=== PATIENT | female | born 1940 | race Caucasian/White ===

== ENCOUNTER 2019-11-16 10:37 | Outpatient (CLI) | payer MEDICARE, SELFPAY ==
--- NOTE | 2019-11-16 12:16 | MR_ITS ---
WS: [id number] MRI CERVICAL SPINE NONCONTRAST TECHNIQUE: Sagittal T1, T2 and STIR imaging. Axial T2, gradient, and fiesta imaging. CLINICAL INFORMATION: NECK PAIN/ RIGHT HAND NUMBNESS COMPARISON: None. FINDINGS: Straightening of the normal cervical lordosis. Cord signal is normal. Mild disc bulging in the mid th oracic spine worse at C3-C4, C4-C5, C5-C6, and C6-7. C2-C3: Small central disc protrusion with slight contact of the cervical cord. Spinal canal is patent . Foramen are patent. C3-C4: Right pericentral disc protrusion with slight contact the cervical cord. Mild central canal st enosis. Moderate right and mild left bony foraminal narrowing. Mild facet arthropathy. C4-C5: Disc osteophyte complex with indentation right ventral cervical cord. Moderate central canal s tenosis. Moderate to severe left and moderate right bony foraminal narrowing. C5-C6: Disc osteophyte complex with shallow central protrusion. Slight contact of the cervical cord. Moderate central canal stenosis. Severe left and moderate right bony foraminal narrowing. Mild facet arthropathy. C6-C7: Disc osteophyte complex with endplate ridging. Moderate to severe bilateral bony foraminal torin rowing worse on the left. Mild central canal stenosis. C7-T1: Slight anterolisthesis C7 on T1. Mild left and no significant right foraminal narrowing. Spina l canal is patent Left pericentral protrusion T1-2. Mild bilateral T1-T2 foraminal narrowing. 6 mm T2 hyperintense nodule in left thyroid gland. MR/MR cervical spin wo con* [id number] IMPRESSION: 1. Straightening of the normal cervical lordosis with moderate central canal s tenosis C3-C6 as described above. This is worse at C4-C5 and C5-C6. 2. Multilevel moderate to severe bony foraminal narrowing worse at left C4-C5, bilateral C5-6 worse in the left, and bilateral C6-7. 3. Cord signal is normal.
== END 2019-11-16 10:38 | disposition home or self-care (01) ==
LOC: RADSHAW 10:42
PROVIDERS: Family Provider Family Medicine; PCP Family Medicine; Visit Provider Physician Assistant
DX: R20.0 Anesthesia of skin (principal); M48.02 Spinal stenosis, cervical region
CPT/HCPCS: 72141

== ENCOUNTER 2022-11-02 09:16 | Observation (INO) | payer MEDICARE, SELFPAY ==
[2022-11-02] VITALS (15 sets, daily range): BP systolic 107–154; BP diastolic 60–97; PULSE 77–143; RESP 16–25; TEMP 36.6; O2SAT 91–96; BMI 27.7
--- NOTE | 2022-11-02 09:20 | XRR_ITS ---
PROCEDURE INFORMATION: Exam: XR Chest Exam date and time: 11/02/2022 9:50 AM Age: 82 years old Clinical indication: Pain; Angina pectoris; Additional info: Chest pain TECHNIQUE: Imaging protocol: Radiologic exam of the chest. Views: 1 view. 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 No acute pulmonary infiltrates are seen. Pleural spaces: Unremarkable. No pleural effusion. No pneumothorax. Heart/Mediastinum: Unremarkable. No cardiomegaly. Bones/joints: There is a thoracic scoliosis convex to the left. XR/XR chest 1V portable [id number] IMPRESSION: No acute abnormality.
--- NOTE | 2022-11-02 09:36 | ECG_ITS ---
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 Measurements Intervals [place] Rate: 144 P: 0 NH: 0 QRS: 50 QRSD: 96 T: 18 QT: 290 QTc: 449 Interpretive Statements ATRIAL FIBRILLATION WITH RAPID VENTRICULAR RESPONSE INCOMPLETE RIGHT BUNDLE BRANCH BLOCK [90+ ms QRS DURATION, TERMINAL R IN V1/V2, 40+ ms S IN I/aVL/V4/V5/V6] MODERATE ST DEPRESSION [0.05+ mV ST DEPRESSION] Compared to ECG 01/10/2019 16:44:06 Incomplete right bundle-branch block now present ST (T wave) deviation now present Ectopic atrial rhythm no longer present Ventricular premature complex(es) no longer present Electronically Signed On 11-02-2022 20:49:35 FULLING MILL OPERATOR by Johana Clarke M.D. [id number]
--- NOTE | 2022-11-02 09:41 | PC.NURSE ---
EKG completed. pt denies hx AFIB. Dr. Hyde notified and given EKG
--- NOTE | 2022-11-02 09:46 | W.ED.CHESTPA ---
HPI - Chest Pain General: Chief Complaint: Chest Pain Stated Complaint: Chest Pains, High HR Time Seen by Provider: 11/02/22 09:40 Source: patient Mode of arrival: ambulatory History of Present Illness: 82-year-old female presents to the emergency room with complaints of chest discomfort and rapid heart rate. She began having chest pain this morning about an hour prior to arrival. It actually resolved prior to her getting here. She has a history of some mitral valve issues but she never had a mitral valve replacement. She is not on any anticoagulation. She is not diabetic she has no known history of coronary artery disease. MD complaint: chest heaviness and chest discomfort Onset (ago): hour(s) Timing of current episode: episodic Prior episodes: No Onset: during rest Pain location: substernal and left chest Pain radiation: none Severity: mild Quality: heaviness Relieving factors: nothing Exacerbating factors: nothing Associated symptoms: Reports palpitations; Deny abdominal pain, diaphoresis, dyspnea, fever(s), leg edema, nausea, sense of impending doom, syncope or vomiting Treatment prior to arrival: none Review of Systems Const: Denies: fever(s) or diaphoresis ENMT: Denies: throat pain, ear or mastoid pain, nasal discharge or nasal congestion Card: Reports: chest pain, palpitations and irregular heart rhythm; Denies: syncope Resp: Denies: dyspnea, productive cough or non-productive cough GI: Denies: abdominal pain, nausea or vomiting : Denies: flank pain, difficulty voiding, dysuria, urinary frequency or urinary urgency Skin/Breast: Denies: rash or pruritus [facility] ED PFSH: Medical History (Updated 11/11/22 @ 08:41 by Nilay Hyde DO) Anxiety and depression Atrial fibrillation with rapid ventricular response Bronchiectasis Hypertension Insomnia No significant past medical history Surgical History (Updated 11/02/22 @ 11:18 by Luis Che MD) History of back surgery History of surgery on right wrist No pertinent past surgical history Family History (Updated 11/02/22 @ 11:18 by Luis Che MD) Other Dementia Social History Smoking and tobacco status: never smoked Alcohol intake: never Physical Exam Const: COMMON NORMALS: no acute distress GENERAL APPEARANCE: cooperative and comfortable ORIENTATION/CONSCIOUSNESS: Yes awake, Yes oriented to person, Yes oriented to place and Yes oriented to time HENMT: COMMON NORMALS: normocephalic, atraumatic and hearing grossly normal bilaterally HEAD & SCALP: normocephalic and atraumatic Resp: COMMON NORMALS: normal respiratory effort, No retractions, No use of accessory muscles and clear to auscultation bilaterally AUSCULTATION: clear to auscultation bilaterally Cardio: COMMON NORMALS: No murmurs present (Cardio) RATE: tachycardic RHYTHM: abnormal rhythm irregularly irregular GI: COMMON NORMALS: Soft to palpation and No hepatosplenomegaly present AUSCULTATION: Yes normoactive bowel sounds PALPATION: Yes Soft to palpation, No Tenderness to palpation present (GI), No Guarding due to palpation present (GI) and Yes No hepatosplenomegaly present Extremity: COMMON NORMALS: normal to inspection, capillary refill normal, no clubbing, cyanosis or edema, no calf tenderness and no pedal edema Neuro: SENSORIUM/ORIENTATION: Yes oriented to person, Yes oriented to place and Yes oriented to time Skin: COMMON NORMALS: no rashes or lesions noted GENERAL SKIN EXAM: no rashes or lesions noted Course Vital Signs: Vital signs: Vital Signs Temperature 98.0 F 11/03/22 08:00 Pulse Rate 82 11/03/22 13:12 Respiratory Rate 18 11/03/22 13:12 Blood Pressure 139/63 11/03/22 13:12 Pulse Oximetry 92 11/03/22 13:12 Oxygen Delivery Me thod 11/03/22 12:00 MDM - Chest Pain Medical Decision Making A-fib with RVR which is new onset for this patient discussed with hospitalist will admit orders written. Will need further evaluation. Medical Records I reviewed the patient's medical records. Lab Data I reviewed the patient's lab results. 11/03/22 04:46 11/03/22 04:46 Radiology Impressions Chest X-Ray 11/02/22 09:20 IMPRESSION: No acute abnormality. Laboratory Results WBC 8.5 10^3/uL (4.0-10.0) 11/02/22 09:43 RBC 4.78 10^6/uL (4.1-5.3) 11/02/22 09:43 Hgb 13.8 g/dL (11.5-15.3) 11/02/22 09:43 Hct 42.6 % (37.0-47.0) 11/02/22 09:43 MCV 89.1 fl (81-99) 11/02/22 09:43 MCH 28.9 pg (28.0-34.0) 11/02/22 09:43 MCHC 32.4 g/dL (30.0-36.0) 11/02/22 09:43 RDW 13.5 % (12.1-15.1) 11/02/22 09:43 Plt Count 203 10^3/cmm (130-400) 11/02/22 09:43 MPV 10.6 fL (7.4-10.4) H 11/02/22 09:43 Neut % (Auto) 36.4 % 11/02/22 09:43 Lymph % (Auto) 50.2 % 11/02/22 09:43 [place] % (Auto) 10.2 % 11/02/22 09:43 Eos % (Auto) 2.5 % 11/02/22 09:43 Baso % (Auto) 0.6 % 11/02/22 09:43 Neut # (Auto) 3.10 10^3/uL (1.8-7.7) 11/02/22 09:43 Lymph # (Auto) 4.3 10^3/uL (0.8-4.8) 11/02/22 09:43 [place] # (Auto) 0.9 10^3/uL (0.2-0.9) 11/02/22 09:43 Eos # (Auto) 0.2 10^3/uL (0.0-0.8) 11/02/22 09:43 Baso # (Auto) 0.1 10^3/uL (0.0-0.1) 11/02/22 09:43 Nucleated RBC % (auto) 0 % 11/02/22 09:43 Nucleated RBCs # 0.0 /100WBC 11/02/22 09:43 Sodium 134 mmol/L (136-145) L 11/02/22 09:43 Potassium 4.1 mmol/L (3.5-5.1) 11/02/22 09:43 Chloride 97 mmol/L (98-107) L 11/02/22 09:43 Carbon Dioxide 28 mmol/L (22-29) 11/02/22 09:43 Anion Gap 13.1 (5-19) 11/02/22 09:43 BUN 14 mg/dL (8-23) 11/02/22 09:43 Creatinine 0.6 mg/dL (0.5-0.9) 02 09:43 GFR Calculation Not Reportable 11/02/22 09:43 Glucose 117 mg/dL (65-115) H 11/02/22 09:43 Calculated Osmolality 280 mOsm/kg (285-295) L 11/02/22 09:43 Calcium 9.6 mg/dL (8.5-10.5) 11/02/22 09:43 Magnesium 2.2 mg/dL (1.7-2.3) 11/02/22 09:43 Total Bilirubin 0.4 mg/dL (0.15-1.2) 11/02/22 09:43 AST 21 U/L (0-32) 11/02/22 09:43 ALT 16 U/L (0-33) 11/02/22 09:43 Alkaline Phosphatase 117 U/L (35-105) H 11/02/22 09:43 Troponin T Baseline 17 ng/L (0-10) H 11/02/22 09:43 Total Protein 7.1 g/dL (6.6-8.7) 11/02/22 09:43 Albumin 4.1 g/dL (3.5-5.2) 11/02/22 09:43 Globulin 3.0 g/dL (1.3-4.6) 11/02/22 09:43 TSH 2.62 uIU/mL (0.27-4.20) 11/02/22 09:43 Discharge Plan Discharge Patient Disposition: Admitted As Inpatient Admit Provider: Luis Che Clinical Impression: Atrial fibrillation with rapid ventricular response, Hypertension, Bronchiectasis Condition: Stable Discharge Diet: Cardiac Discharge Activity: Increase activity as tolerated Coding Level of Care Code ED Dental Treatment Coordinator for Cezar Biswas
[2022-11-02 09:51] LABS: Basophils # 0.1 10^3/uL (0.0-0.1); Basophils % 0.6 %; Eosinophils # 0.2 10^3/uL (0.0-0.8); Eosinophils % 2.5 %; Hematocrit 42.6 % (37.0-47.0); Hemoglobin 13.8 g/dL (11.5-15.3); Lymphocytes # 4.3 10^3/uL (0.8-4.8); Lymphocytes % 50.2 %; Mean Corpuscular HGB Conc 32.4 g/dL (30.0-36.0); Mean Corpuscular Hemoglobin 28.9 pg (28.0-34.0); Mean Corpuscular Volume 89.1 fl (81-99); Mean Platelet Volume 10.6 fL (7.4-10.4); Monocytes # 0.9 10^3/uL (0.2-0.9); Monocytes % 10.2 %; Neutrophils % 36.4 %; Nucleated Red Blood Cells % 0 %; Platelet Count 203 10^3/cmm (130-400); Red Blood Count 4.78 10^6/uL (4.1-5.3); Red Cell Distribution Width 13.5 % (12.1-15.1); White Blood Count 8.5 10^3/uL (4.0-10.0)
[2022-11-02] MEDS: dilTIAZem 5 mg/mL SDV 5 mL 10 MG IVP (09:55)
[2022-11-02] MEDS: dilTIAZem 100 MG in sodium chloride 0.9% (add-van) 100 ML IV (09:55)
--- NOTE | 2022-11-02 10:19 | PC.NURSE ---
PT PLACED ON CONTINUOUS SPO2, NIBP, AND CM.
[2022-11-02 10:23] LABS: Troponin(5th) Baseline 17 ng/L (0-10)
[2022-11-02 10:30] LABS: Alanine Aminotransferase 16 U/L (0-33); Albumin Level 4.1 g/dL (3.5-5.2); Alkaline Phosphatase 117 U/L (35-105); Anion Gap 13.1 (5-19); Aspartate Amino Transferase 21 U/L (0-32); Blood Urea Nitrogen 14 mg/dL (8-23); Calcium 9.6 mg/dL (8.5-10.5); Carbon Dioxide 28 mmol/L (22-29); Chloride 97 mmol/L (98-107); Glucose 117 mg/dL (65-115); Osmolality Calculated 280 mOsm/kg (285-295); Potassium 4.1 mmol/L (3.5-5.1); Sodium 134 mmol/L (136-145); Thyroid Stimulating Hormone 2.62 uIU/mL (0.27-4.20); Total Bilirubin 0.4 mg/dL (0.15-1.2); Total Protein 7.1 g/dL (6.6-8.7)
--- NOTE | 2022-11-02 11:13 | PM.HP ---
Providers/Chief Complaint Admitting Physician: Luis Che MD, hospitalist Primary Care Provider: Luís Wilcox MD Chief Complaint: Chest Pains, High HR History of Present Illness Kenyatta Callejas is a 82 year old female presenting to the emergency department with complaints of chest discomfort. She reported around 830 this morning while eating some medicine on her she started having some sweating, discomfort in her chest going into her left arm, and some nausea. She tried to take her heart rate but it was very fast, and did not register. She reports she has not had this happen previously. She denied any past history of exertional chest discomfort. She does states she had a history of SVT and ablation but this was over 20 years ago. She denies any prior history of atrial fibrillation. She reports she has no chest discomfort now. In the emergency department she was given Cardizem, and she spontaneously converted to sinus rhythm. She reports she had pneumonia several weeks ago, and usually has some wheezing secondary to her chronic bronchiectasis affecting her right lung more than left. She denies any recent fevers. Review of Systems General: Reports: 10 or more systems reviewed and unremarkable except in HPI and below Const: Denies: fever(s) or chills Eyes: Denies: change in vision ENMT: Denies: throat pain Card: Reports: chest pain Resp: Denies: dyspnea GI: Reports: abdominal pain, nausea and other (History of abdominal discomfort recently) : Denies: flank pain Musc: Denies: neck pain Skin/Breast: Denies: rash Neuro: Denies: headache(s) Psych: Reports: anxiety and depression Endo: Denies: polyuria Freddy/Lymph: Denies: easy bruising All/Imm: Denies: urticaria Medications/Allergies Home Medications Medication Instructions Recorded Confirmed Last Taken Type albuterol sulfate 90 mcg/actuation 2 puff inhalation Q6H PRN 11/02/22 11/02/22 Unknown History aerosol inhaler Shortness Of Breath ascorbic acid (vitamin C) 500 mg 500 mg PO DAILY 11/02/22 11/02/22 11/02/22 History capsule,extended release (Vitamin C) aspirin 81 mg chewable tablet 81 mg PO DAILY 11/02/22 11/02/22 11/02/22 History 2.5 tabs today cholecalciferol (vitamin D3) 25 25 mcg PO DAILY 11/02/22 11/02/22 11/02/22 History mcg (1,000 unit) capsule (Vitamin D3) escitalopram oxalate 20 mg tablet 20 mg PO DAILY 11/02/22 11/02/22 11/01/22 History lorazepam 0.5 mg tablet 0.5 mg PO BID PRN Anxiety 11/02/22 11/02/22 Unknown History losartan 50 mg tablet 50 mg PO BID 11/02/22 11/02/22 11/02/22 History nortriptyline 10 mg capsule 10 mg PO BEDTIME 11/02/22 11/02/22 11/01/22 History tiotropium bromide 18 mcg capsule 1 cap inhalation DAILY 11/02/22 11/02/22 11/01/22 History with inhalation device (Spiriva with HandiHaler) Allergies Allergy/AdvReac Type Severity Reaction Status Date / Time No Known Allergies Allergy Verified 11/02/22 09:54 PFSH Acute PFSH: Medical History (Updated 11/02/22 @ 11:21 by Luis Che MD) Anxiety and depression Bronchiectasis Hypertension Insomnia No significant past medical history Surgical History (Updated 11/02/22 @ 11:18 by Luis Che MD) History of back surgery History of surgery on right wrist No pertinent past surgical history Family History (Updated 11/02/22 @ 11:18 by Luis Che MD) Other Dementia Social History Smoking and tobacco status: never smoked Alcohol intake: never Vitals/I&O/Wt Last Vital Signs Pulse 87 11/02/22 11:00 Resp 25 H 11/02/22 11:00 BP 107/68 11/02/22 11:00 Pulse Ox 93 11/02/22 11:00 O2 Del Method 11/02/22 09:23 Weight last 48 hrs Weight 78.018 kg Physical Exam Narrative: General exam is a white female, conversant, reporting she does not have any chest discomfort currently. HEENT: Atraumatic and normocephalic. Pupils equally round. Oropharynx clear. Neck is supple no lymphadenopathy or thyromegaly Cardiovascular regular rate and rhythm without murmur Lungs clear no wheezing or crackles Abdomen is soft with positive bowel sounds. No obvious organomegaly exam was deferred Extremities no cyanosis clubbing or edema, cap refill brisk Skin no rash Neuro no obvious focal deficits. Data 11/02/22 09:43 11/02/22 09:43 Other Labs: EKG which I personally reviewed on admission demonstrated a heart rate of 144, irregular consistent with A-fib with ST depression lateral V4 through 6 and incomplete right bundle branch block Chest x-ray which I reviewed demonstrated no obvious infiltrate TSH is normal Calcium is normal Initial troponin 17 Alk phos slightly high at 117 rest of LFTs normal A&P Assessment and plan (1) Atrial fibrillation with rapid ventricular response: Patient presents to the hospital with atrial fibrillation with rapid ventricular rate. TSH was checked and normal Will go ahead and check a magnesium Check echocardiogram Repeat electrolytes in the morning Trend troponins. She had significant chest discomfort with heart rate increase which may indicate underlying heart disease. Consider nuclear stress testing. Lovenox for anticoagulation. Discussed briefly with the patient. Try to wean off Cardizem drip, initiating diltiazem 30 mg every 6 hours currently. (2) GERD (gastroesophageal reflux disease): Patient has been recently having some GI symptomatology with queasiness. Initiate Protonix (3) Hypertension: Reduce losartan to 50 mg daily. Blood pressure is slightly low and will need to make some room secondary to addition of Cardizem. (4) Bronchiectasis: DuoNeb every 6 hours while in the hospital (5) Anxiety and depression: Continue home medications Plan Other medical problems as outlined in past medical history Full code Lovenox will suffice for DVT prophylaxis Attestations Medical Necessity Statement*: Will need less than 2 midnight stay for evaluation and treatment of atrial fibrillation with rapid ventricular rate. [place] [address] High MDM includes risk/complexity, reviewing test results, ordering lab/other test(s) and independently interpretating test(s) (not separately recorded) Patient Type New Medical Decision Making High Complexity Diagnoses Atrial fibrillation with rapid ventricular response I48.91 GERD (gastroesophageal reflux disease) K21.9 Hypertension I10 Bronchiectasis J47.9 Anxiety and depression F41.9; F32.A Time Spent (min) 41
--- NOTE | 2022-11-02 11:19 | USCV_ITS ---
Kenyatta Callejas Age: 82 Gender: F : 1940 Exam Date: 11/02/2022 16:21 Ordering Phys: Luis Che MD Technologist: Dequan Lloyd Exam Location: [facility] [place] Indication: CHEST PAIN BP: 136 / 80 HR: 78 Rhythm: Sinus Technical Quality: Adequate MEASUREMENTS (Male / Female) Normal Values 2D ECHO LV Diastolic Diameter PLAX 3.3 cm 4.2 - 5.9 / 3.9 - 5.3 cm LV Systolic Diameter PLAX 1.7 cm IVS Diastolic Thickness 0.9 cm 0.6 - 1.0 / 0.6 - 0.9 cm IVS Systolic Thickness 1.0 cm LVPW Diastolic Thickness 1.5 cm 0.6 - 1.0 / 0.6 - 0.9 cm LVPW Systolic Thickness 1.9 cm LVOT Diameter 2.0 cm LV Ejection Fraction 2D Teich 81.2 % LV Ejection Fraction MOD 2C 64.4 % LV Ejection Fraction 2C AL 64.7 % LA Diameter 3.3 cm LA Width 3.0 cm LA Height 3.8 cm RA Width 3.3 cm RA Height 4.1 cm Aorta at Sinotubular Diameter 2.2 cm IVC Diameter 1.2 cm M-MODE Aortic Annulus Diameter 2.3 cm LA Ao Ratio MM 1.5 MV E Point Septal Separation 0.3 cm DOPPLER AV Peak Velocity 152.7 cm/s LVOT Peak Velocity 101.0 cm/s AV Area Cont Eq vti 2.1 cm squared AV Area Cont Eq pk 2.1 cm squared MV Peak Velocity 102.0 cm/s MV Area PHT 3.4 cm squared Mitral E to A Ratio 0.6 MV E' Velocity 30.0 cm/s Mitral E to MV E' Ratio 7.8 Mitral E to LV E' Lateral Ratio 8.7 Mitral E to LV E' Septal Ratio 7.1 TR Peak Velocity 222.4 cm/s TR Peak Gradient 19.8 mmHg TR Mean Velocity 187.1 cm/s TR Mean Gradient 15.5 mmHg TR Velocity Time Integral 55.4 cm Right Atrial Pressure 3.0 mmHg Pulmonary Artery Systolic Pressu 22.8 mmHg PV Peak Velocity 90.3 cm/s RV Acceleration Time 0.1 s RV Ejection Time 0.3 s RV AcT/ET 0.5 FINDINGS Left Ventricle Left ventricle is normal in size. LV systolic function is normal with EF 55 to 60%. No regional wall motion abnormalities are seen. Grade 1 diastolic dysfunction Right Ventricle Normal in size and function Right Atrium Normal in size Left Atrium Normal in size Mitral Valve Structurally normal mitral valve.Mild mitral regurgitation Aortic Valve Aortic valve is thickened. No significant aortic stenosis. Tricuspid Valve Mild tricuspid regurgitation. Pulmonary artery systolic pressure is normal. Pulmonic Valve Not well-visualized.Trace pulmonic regurgitation Pericardium Normal Aorta Normal in size IVC Appears to be normal CONCLUSIONS LV systolic function is normal with EF 55 to 60% Grade 1 diastolic dysfunction Mild mitral regurgitation Mild tricuspid regurgitation Trace pulmonic regurgitation No comparison studies are available Alex Richardson MD (Electronically Signed) Final Date: 03 November 2022 08:18 S
--- NOTE | 2022-11-02 11:20 | ECG_ITS ---
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 Measurements Intervals [place] Rate: 82 P: 65 AR: 210 QRS: 32 QRSD: 88 T: 46 QT: 375 QTc: 441 Interpretive Statements SINUS RHYTHM WITH FIRST DEGREE AV BLOCK Compared to ECG 11/02/2022 09:36:31 First degree AV block now present Atrial fibrillation no longer present Incomplete right bundle-branch block no longer present ST (T wave) deviation no longer present Electronically Signed On 11-02-2022 22:10:36 JEWELRY COATER by Johana Clarke M.D. [id number]
[2022-11-02] MEDS: dilTIAZem 30 mg Tablet PO ×3 (11:31→22:00)
[2022-11-02 11:37] LABS: Magnesium 2.2 mg/dL (1.7-2.3)
[2022-11-02] MEDS: enoxaparin 80 mg/0.8 mL Syringe SUBCUT ×2 (12:15→23:59)
[2022-11-02] MEDS: pantoprazole DR 40 mg Tablet PO (13:35)
--- NOTE | 2022-11-02 14:57 | PC.NURSE ---
Verbal order from doctor to discontinue Cardizem drip.
--- NOTE | 2022-11-02 15:20 | ECG_ITS ---
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 Measurements Intervals [place] Rate: 86 P: 67 CT: 222 QRS: 35 QRSD: 86 T: 47 QT: 368 QTc: 440 Interpretive Statements SINUS RHYTHM WITH FIRST DEGREE AV BLOCK INTERPRETATION BASED ON A DEFAULT AGE OF 40 YEARS Compared to ECG 11/02/2022 09:36:31 First degree AV block now present Atrial fibrillation no longer present Incomplete right bundle-branch block no longer present ST (T wave) deviation no longer present Electronically Signed On 11-02-2022 22:10:52 OWNER MANAGER by Johana Clarke M.D. [id number] f
[2022-11-02 16:19] LABS: Troponin 5 6HR 53.76 ng/L (0-10)
[2022-11-02 16:32] LABS: Troponin 5 6HR Delta 36.76 ng/L (0-12)
--- NOTE | 2022-11-02 16:34 | PC.NURSE ---
Critical lab called to Dr. Che, 6 hour trop 36.76. No new orders at this time.
--- NOTE | 2022-11-02 16:41 | PC.NURSE ---
Pt arrived to unit at 1511 via wc. Daughter at bedside. Voices no c/o pain or discomfort. Call light in reach. Oriented to the room. Will cont. to monitor.
--- NOTE | 2022-11-02 18:31 | ECG_ITS ---
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 Interpretive Statements NAME OF STUDY: LEXISCAN SESTAMIBI STRESS TEST INDICATION: Chest Pain, PROCEDURE: At the baseline, the EKG revealed normal sinus rhythm with normal ST Ts. The baseline heart was 73 bpm with a blood pressue of 151/74 mm of Hg Lexiscan was infused over a period of 20 seconds. A total of 0.4 milligrams of Lexiscan was infused. The stress phase was continued for a total of 5 minutes. Heart rate at the end of the stress phase was 90 bpm with a blood pressure 133/65 mm of Hg. The EKG at the peak infusion revealed no significant changes. Sestamibi was injected 20 seconds after the Lexiscan infusion. Heart rate at the end of the recovery phase was 82 bpm with a blood pressure of 145/65 mm of Hg. Only limited EKGs were available for review-apparently had some technical prior with the study CONCLUSION: 1. No significant EKG changes with the LexiScan infusion 2. No LexiScan induced chest pain or cardiac arrhythmia 3. Normal blood pressure and heart rate response 4. Sestamibi/sestamibi perfusion scan pending; see separate report. Electronically Signed On 11-07-2022 13:40:15 LATEX FASHIONS DESIGNER by Roel Crooks M.D. [email or web address].[email or web address]/store/[id number]
[2022-11-02] MEDS: LORazepam 0.5 mg Tablet PO (22:00)
[2022-11-03] VITALS (8 sets, daily range): BP systolic 132–155; BP diastolic 62–82; PULSE 66–87; RESP 14–25; TEMP 36.7–37.3; O2SAT 91–94
[2022-11-03] MEDS: dilTIAZem 30 mg Tablet PO (04:10)
[2022-11-03 05:56] LABS: Basophils # 0.1 10^3/uL (0.0-0.1); Basophils % 0.7 %; Eosinophils # 0.3 10^3/uL (0.0-0.8); Eosinophils % 3.2 %; Hematocrit 37.7 % (37.0-47.0); Hemoglobin 12.6 g/dL (11.5-15.3); Lymphocytes # 5.6 10^3/uL (0.8-4.8); Lymphocytes % 60.8 %; Mean Corpuscular HGB Conc 33.4 g/dL (30.0-36.0); Mean Corpuscular Hemoglobin 29.6 pg (28.0-34.0); Mean Corpuscular Volume 88.5 fl (81-99); Mean Platelet Volume 11.4 fL (7.4-10.4); Monocytes # 0.8 10^3/uL (0.2-0.9); Monocytes % 8.4 %; Neutrophils # 2.45 10^3/uL (1.8-7.7); Neutrophils % 26.7 %; Nucleated Red Blood Cells % 0 %; Platelet Count 204 10^3/cmm (130-400); Red Blood Count 4.26 10^6/uL (4.1-5.3); Red Cell Distribution Width 13.8 % (12.1-15.1); White Blood Count 9.2 10^3/uL (4.0-10.0)
[2022-11-03 06:16] LABS: Anion Gap 13.2 (5-19); Blood Urea Nitrogen 16 mg/dL (8-23); Calcium 8.9 mg/dL (8.5-10.5); Carbon Dioxide 25 mmol/L (22-29); Chloride 103 mmol/L (98-107); Glucose 106 mg/dL (65-115); Osmolality Calculated 286 mOsm/kg (285-295); Potassium 4.2 mmol/L (3.5-5.1); Sodium 137 mmol/L (136-145)
[2022-11-03] MEDS: regadenoson 0.4 Mg/5 ml Syringe IVP (07:45)
[2022-11-03] MEDS: ondansetron 2 mg/ML SDV 2 mL 4 MG IVP (07:51)
[2022-11-03] MEDS: pantoprazole DR 40 mg Tablet PO (09:06)
[2022-11-03] MEDS: losartan 50 mg Tablet PO (09:07)
[2022-11-03] MEDS: escitalopram 10 mg Tablet 20 MG PO (09:07)
[2022-11-03] MEDS: aspirin 81 mg Chew Tablet PO (09:07)
[2022-11-03] MEDS: dilTIAZem ER (24HR) 120 mg Capsule PO (09:10)
--- NOTE | 2022-11-03 09:23 | PC.NURSE ---
Pt has returned from [employer]. No acute discomfort noted. Eating breakfast, call light in reach, and spouse at bedside.
--- NOTE | 2022-11-03 11:08 | PC.NURSE ---
Spoke with Dr. Che and he does not want the [address] [facility] given.
[2022-11-03] MEDS: enoxaparin 80 mg/0.8 mL Syringe SUBCUT (11:57)
--- NOTE | 2022-11-03 12:48 | P.DS_ITS ---
Discharge Providers Date of Admission: 11/02/22 11:19 Date of Discharge: November 03, 2022 Attending Provider at Admission: Luis hCe MD Attending Provider at Discharge: Luis Che MD Primary Care Provider: Luís Wilcox MD Diagnoses at Discharge Discharge Diagnosis (1) Atrial fibrillation with rapid ventricular response: Status: Acute (2) GERD (gastroesophageal reflux disease): Status: Acute (3) Hypertension: Status: Acute (4) Bronchiectasis: Status: Acute (5) Anxiety and depression: Status: Acute Reason for Visit Reason for Visit: Chest Pains, High HR Hospital Course Hospital Course Kenyatta is an 82-year-old white female who presented to the emergency department with complaints of chest discomfort. She was found to be in atrial fibrillation with rapid ventricular rate. 2-hour troponin was elevated. She was given diltiazem IV, and she spontaneously converted in the emergency department. She was fully anticoagulated, and short acting Cardizem was given. Secondary to her significant troponin elevation and symptomatology concerning for coronary disease nuclear stress test was performed the next day on 03 November. This demonstrated no reversible ischemia. Overnight she remained in sinus rhythm, and she was moved to long-acting diltiazem. With a normal nuclear stress test, rhythm returning to sinus rhythm was thought she could be discharged home. She was given an opportunity to ask questions, and agreed with the plan. She was started on Eliquis and risks and benefits discussed. She will follow-up with her primary care provider as well as cardiology. Echo was also done while the patient was in the hospital and EF was found to be preserved at 55 to 60%, grade 1 diastolic dysfunction and some minor valve abnormalities. Physical Exam Narrative: General exam no distress Neck is supple Cardiovascular regular in rhythm without murmur Lungs clear Abdomen is soft with positive bowel sounds Extremities no cyanosis clubbing or edema Discharge Data Studies Completed and Pending Completed Studies During Hospitalization Category Date Time Status Sestamibi Stress Test Request Routine Exams 11/02/22 18:31 Draft XR chest 1V portable [id number] Stat Exams 11/02/22 09:20 Completed NM anupam perf SPECT r/s* [id number] Routine Nuc Med 11/03/22 18:31 Completed CV. echo complete* [id number] Routine Ultrasound 11/02/22 11:19 Completed Radiology Impressions Chest X-Ray 11/02/22 09:20 IMPRESSION: No acute abnormality. Laboratory Results WBC 9.2 10^3/uL (4.0-10.0) 11/03/22 04:46 RBC 4.26 10^6/uL (4.1-5.3) 11/03/22 04:46 Hgb 12.6 g/dL (11.5-15.3) 11/03/22 04:46 Hct 37.7 % (37.0-47.0) 11/03/22 04:46 MCV 88.5 fl (81-99) 11/03/22 04:46 MCH 29.6 pg (28.0-34.0) 11/03/22 04:46 MCHC 33.4 g/dL (30.0-36.0) 11/03/22 04:46 RDW 13.8 % (12.1-15.1) 11/03/22 04:46 Plt Count 204 10^3/cmm (130-400) 11/03/22 04:46 MPV 11.4 fL (7.4-10.4) H 11/03/22 04:46 Neut % (Auto) 26.7 % 11/03/22 04:46 Lymph % (Auto) 60.8 % 11/03/22 04:46 [place] % (Auto) 8.4 % 11/03/22 04:46 Eos % (Auto) 3.2 % 11/03/22 04:46 Baso % (Auto) 0.7 % 11/03/22 04:46 Neut # (Auto) 2.45 10^3/uL (1.8-7.7) 11/03/22 04:46 Lymph # (Auto) 5.6 10^3/uL (0.8-4.8) H 11/03/22 04:46 [place] # (Auto) 0.8 10^3/uL (0.2-0.9) 11/03/22 04:46 Eos # (Auto) 0.3 10^3/uL (0.0-0.8) 11/03/22 04:46 Baso # (Auto) 0.1 10^3/uL (0.0-0.1) 11/03/22 04:46 Nucleated RBC % (auto) 0 % 11/03/22 04:46 Nucleated RBCs # 0.0 /100WBC 11/03/22 04:46 Sodium 137 mmol/L (136-145) 11/03/22 04:46 Potassium 4.2 mmol/L (3.5-5.1) 11/03/22 04:46 Chloride 103 mmol/L (98-107) 11/03/22 04:46 Carbon Dioxide 25 mmol/L (22-29) 11/03/22 04:46 Anion Gap 13.2 (5-19) 11/03/22 04:46 BUN 16 mg/dL (8-23) 11/03/22 04:46 Creatinine 0.6 mg/dL (0.5-0.9) 11/03/22 04:46 GFR Calculation Not Reportable 11/03/22 04:46 Glucose 106 mg/dL (65-115) 11/03/22 04:46 Calculated Osmolality 286 mOsm/kg (285-295) 11/03/22 04:46 Calcium 8.9 mg/dL (8.5-10.5) 11/03/22 04:46 Magnesium 2.2 mg/dL (1.7-2.3) 11/02/22 09:43 Total Bilirubin 0.4 mg/dL (0.15-1.2) 11/02/22 09:43 AST 21 U/L (0-32) 11/02/22 09:43 ALT 16 U/L (0-33) 11/02/22 09:43 Alkaline Phosphatase 117 U/L (35-105) H 11/02/22 09:43 Troponin T Baseline 17 ng/L (0-10) H 11/02/22 09:43 Troponin T 120 Minute 58.10 ng/L (0-10) H 11/02/22 11:47 Delta Troponin T 41.10 ABS# (0-10) H* 11/02/22 11:47 Troponin T Hi Sens 6Hr 53.76 ng/L (0-10) H 11/02/22 15:52 Troponin T Hi Sens 6Hr Delta 36.76 ng/L (0-12) H* 11/02/22 15:52 Total Protein 7.1 g/dL (6.6-8.7) 11/02/22 09:43 Albumin 4.1 g/dL (3.5-5.2) 11/02/22 09:43 Globulin 3.0 g/dL (1.3-4.6) 11/02/22 09:43 TSH 2.62 uIU/mL (0.27-4.20) 11/02/22 09:43 Vitals Last Vital Signs Temp 98.0 F 11/03/22 08:00 Pulse 75 11/03/22 12:00 Resp 21 H 11/03/22 12:00 BP 139/63 11/03/22 12:00 Pulse Ox 92 11/03/22 12:00 O2 Del Method 11/03/22 12:00 Discharge Plan Discharge Patient Disposition: Home Condition: Stable Prescriptions: New diltiazem HCl 120 mg Capsule,Extended Release 24hr 120 mg PO DAILY Qty: 30 0RF Eliquis 5 mg tablet 5 mg PO BID Qty: 60 0RF pantoprazole 40 mg Tablet,Delayed Release (Dr/Ec) 40 mg PO DAILY Qty: 30 0RF Continued lorazepam 0.5 mg tablet 0.5 mg PO BID PRN (Reason: Anxiety) nortriptyline 10 mg capsule 10 mg PO BEDTIME Vitamin C 500 mg Capsule, Extended Release 500 mg PO DAILY aspirin 81 mg Tablet,Chewable 81 mg PO DAILY albuterol sulfate 90 mcg/actuation HFA aerosol inhaler 2 puff INHALATION Q6H PRN (Reason: Shortness Of Breath) Vitamin D3 25 mcg (1,000 unit) Capsule 25 mcg PO DAILY escitalopram oxalate 20 mg tablet 20 mg PO DAILY Spiriva with HandiHaler 18 mcg capsule, w/inhalation device 1 cap INHALATION DAILY Changed losartan 50 mg tablet 50 mg PO DAILY Qty: 30 0RF Discharge Orders: Discharge Order (Routine); Ordered 11/03/22 Ordered By: Luis Che Referrals: Alex Richardson M.D [Physician] - 2 weeks Luís Wilcox MD [Primary Care Provider] - 4-7 days Discharge Diet: Cardiac Discharge Activity: Increase activity as tolerated Patient Instructions: Opioid Safety Activity Restrictions/Additional Instructions: Take all medicine as prescribed Follow-up with cardiology 4 weeks, primary care provider 3 to 5 days Return for any concerns Discussed risks and benefits of Eliquis with patient, and what to watch for and regarding bleeding Patient's Health Concerns: Chest discomfort, atrial fibrillation with rapid ventricular rate Assessment: Now converted to sinus rhythm Plan of Treatment: Eliquis Extended release Cardizem Goals: No recurrence of tachycardia Discharge Attestations Time Spent in Discharge Care*: greater than 30 min Quality Metrics Clinical Quality Measures [ No reported AMI, CVA or VTE this stay] Coding Level of Care Code 29085 Total time (in minutes) for Discharge: 37 Diagnoses Atrial fibrillation with rapid ventricular response I48.91 GERD (gastroesophageal reflux disease) K21.9 Hypertension I10 Bronchiectasis J47.9 Anxiety and depression F41.9; F32.A
--- NOTE | 2022-11-03 13:30 | PC.NURSE ---
Pt discharged home with spouse. Voiced understanding of discharge instructions. IVs removed and cathlons intact. Belongings sent with pt.
--- NOTE | 2022-11-03 18:31 | NMCV_ITS ---
NM anupam perf SPECT r/s* [id number] Kenyatta Callejas Age: 82 Gender: F : 1940 Exam Date: 11/03/2022 18:31 Ordering Phys: Luis Che MD Technologist: SCOT Ochoa Exam Location: [facility] Indications: CHEST PAIN STRESS TEST Please see separate stress test report in [facility] for full findings IMAGE PROTOCOL Rest/Stress 1 Lexiscan Day Radiopharmaceutical Dose (mCi) Administration Site Administered by Rest: Tc-99m 10.8 IV SCOT Hubbard Sestamibi Stress:Tc-99m 32.9 IV SCOT [place] Sestamibi Rest: 03-Nov-2022 60 Discovery 630 Stress: 03-Nov-2022 30 Discovery 630 0.4mg Lexiscan. Images obtained in supine and prone position. SPECT RESULTS Technical Quality: Excellent Raw Data Analysis: Normal Image Corrections: No attenuation or motion correction applied Summed Stress Score: 0 Summed Rest Score: 0 Summed Difference Score: 0 PERFUSION FINDINGS Uniform myocardial tracer uptake with no significant perfusion abnormalities FUNCTIONAL RESULTS (calculated via Gated SPECT) Stress Image LV EF (%): 83 Stress EDV (mL):53 TID: 0.9 Stress ESV (mL):9 FUNCTIONAL FINDINGS: Segmental wall motion analysis revealing no gross wall motion abnormalities IMPRESSIONS 1. Unremarkable Myocardial perfusion imaging. 2. Normal LV ejection fraction of 83%. 3. Segmental wall motion analysis revealing no gross wall motion abnormalities 2. Normal LV volume Low probability for coronary ischemia, based on the above findings Dr Roel Crooks MD FAC (Electronically Signed) Final Date: 03 November 2022 12:14 S
== END 2022-11-03 13:14 | disposition home or self-care (01) ==
LOC: ER 10:33 → CSU 14:34
PROVIDERS: Admitting Provider Internal Medicine; Emergency Provider Family Medicine; PCP Family Medicine; Visit Provider Internal Medicine
DX: I48.91 Unspecified atrial fibrillation (principal); K21.9 Gastro-esophageal reflux disease without esophagitis; I10 Essential (primary) hypertension; J47.9 Bronchiectasis, uncomplicated; F41.9 Anxiety disorder, unspecified; F32.A Depression, unspecified; Z79.82 Long term (current) use of aspirin
CPT/HCPCS: 36415; 71045; 78452; 80048; 80053; 83735; 84443; 84484; 85025; 93005; 93017; 93306; 96372; 96374; 96375; 99285; A9500; G0378; J1650; J2405; J2785; J3490

== ENCOUNTER → 2022-11-13 11:25 | Outpatient (BNVA) | payer MEDICARE, SELFPAY | PROVIDERS: PCP Family Medicine; Visit Provider Internal Medicine | DX: I48.91 Unspecified atrial fibrillation (principal); I10 Essential (primary) hypertension; Z79.01 Long term (current) use of anticoagulants | CPT/HCPCS: 99214 ==

== ENCOUNTER → 2023-03-04 13:48 | Outpatient (BNVA) | payer MEDICARE, SELFPAY | PROVIDERS: PCP Family Medicine; Visit Provider Internal Medicine | DX: I48.91 Unspecified atrial fibrillation (principal); I10 Essential (primary) hypertension; Z79.01 Long term (current) use of anticoagulants | CPT/HCPCS: 99214 ==

== ENCOUNTER → 2023-09-09 15:01 | Outpatient (BNVA) | payer MEDICARE, SELFPAY | PROVIDERS: PCP Family Medicine; Visit Provider Internal Medicine | DX: I48.91 Unspecified atrial fibrillation (principal); I10 Essential (primary) hypertension; Z79.01 Long term (current) use of anticoagulants | CPT/HCPCS: 99214 ==

== ENCOUNTER → 2024-03-15 12:45 | Outpatient (BNVA) | payer MEDICARE, SELFPAY | PROVIDERS: PCP Family Medicine; Visit Provider Internal Medicine Cardiovascular Disease | DX: I48.91 Unspecified atrial fibrillation (principal); I10 Essential (primary) hypertension; Z79.01 Long term (current) use of anticoagulants | CPT/HCPCS: 99214 ==

== ENCOUNTER → 2025-04-16 14:26 | Outpatient (BNVA) | payer MEDICARE, SELFPAY | PROVIDERS: PCP Family Medicine; Visit Provider Internal Medicine | DX: I48.20 Chronic atrial fibrillation, unspecified (principal); Z79.01 Long term (current) use of anticoagulants; I10 Essential (primary) hypertension | CPT/HCPCS: 99214 ==